=== PATIENT | male | born 1970 | race African-American/Black ===

== ENCOUNTER 2019-02-14 00:28 | Emergency (ER) | payer SELFPAY ==
[~2019-02-14] VITALS: Ht 182.9 cm; Wt 88.0 kg
[2019-02-14 03:26] LABS: CLARITY URINE CLOUDY (CLEAR); COLOR URINE YELLOW (YELLOW); KETONES URINE NEGATIVE (NEGATIVE); LEUKOCYTE ESTERASE URINE NEGATIVE (NEGATIVE); NITRITE URINE NEGATIVE (NEGATIVE); OCCULT BLOOD URINE NEGATIVE (NEGATIVE); PROTEIN URINE NEGATIVE (NEGATIVE); UROBILINOGEN URINE 0.2 E.U./dL (0.2-1.0)
[2019-02-14 04:11] VITALS: BP 119/77
== END 2019-02-14 04:14 | disposition home or self-care (01) ==
LOC: ER 02:06
DX: L72.0 Epidermal cyst (principal); N43.3 Hydrocele, unspecified; R03.0 Elevated blood-pressure reading, without diagnosis of hypertension
CPT/HCPCS: 76870; 93976; 99284